=== PATIENT | female | born 2000 | race American Indian/Alaskan Native ===

== ENCOUNTER 2021-07-06 21:24 | Emergency (ER) | payer MEDICAID ==
[2021-07-06 21:44] VITALS: BP 115/63
[2021-07-06] MEDS ORDERED: ACETAMINOPHEN 325 MG TAB PO ONE (21:59)
[2021-07-06 23:17] LABS: Basophils # (Auto) 0.1 K/mm3 (0.0-0.1); Basophils % (Auto) 2.7 % (0.0-1.8); Eosinophils # (Auto) 0.3 K/mm3 (0.0-0.4); Eosinophils % (Auto) 6.4 % (0.0-4.3); Hematocrit 33.7 % (30.3-42.9); Hemoglobin 11.9 gm/dl (10.1-14.3); Lymphocytes # (Auto) 1.4 K/mm3 (1.2-5.4); Lymphocytes % (Auto) 26.9 % (13.4-35.0); Mean Corpuscular HGB Conc 35 % (30-34); Mean Corpuscular Volume 91 fl (79-97); Monocytes # (Auto) 0.3 K/mm3 (0.0-0.8); Monocytes % (Auto) 5.8 % (0.0-7.3); Platelet Count 262 K/mm3 (140-440); Red Blood Count 3.71 M/mm3 (3.65-5.03); Red Cell Distribution Width 12.4 % (13.2-15.2)
[2021-07-06 23:31] LABS: Blood Urea Nitrogen 6 mg/dL (7-17); Calcium 9.4 mg/dL (8.4-10.2); Hemolysis Index 4
[2021-07-06 23:32] LABS: Alanine Aminotransferase < 5 units/L (7-56); BUN/Creatinine Ratio 9
--- NOTE | 2021-07-06 23:36 | Emergency Department Report ---
ED Female HPI - General Chief complaint: Vaginal Bleeding Stated complaint: 14 WKS PREG/VAGINAL BLEEDING Source: patient Mode of arrival: Ambulatory Limitations: No Limitations - History of Present Illness Initial comments: Patient is a A2 20-year-old -[place] female who is approximately 14 weeks gestation and with no past medical history presents to the ED with acute onset persistent heavy vaginal bleeding for the last 2 hours. Patient states that [place] the [place] when she noticed some wetness in her pants and came to the car and while there she noticed that she had heavy vaginal bleeding. Patient also complains of headache and lightheadedness. Patient denies abdominal pain, dysuria, urinary frequency and urgency, vaginal discharge, chest pain or shortness of breath, nausea, vomiting, diarrhea, fever and chills, traumatic injury or heavy lifting and sore throat. MD Complaint: vaginal bleeding, pelvic pain -: Sudden, hour(s) (2) Location: suprapubic, other (Vaginal) Radiation: non-radiating Severity: moderate Severity scale (0 -10): 2 Quality: dull Consistency: constant Improves with: none Worsens with: none Are you Now?: Yes (Approximately 14 weeks gestation) Associated Symptoms: denies other symptoms, vaginal bleeding, headaches. denies: vaginal discharge, abdominal pain, nausea/vomiting, fever/chills, loss of appetite, dysuria, hematuria, rash, seizure, shortness of breath, syncope - Related Data Sexually active: Yes : 3 Para: 0 A: 2 Allergies Allergy/AdvReac Type Severity Reaction Status Date / Time No Known Allergies Allergy Verified 07/06/21 21:43 ED Review of Systems ROS: Stated complaint: 14 WKS PREG/VAGINAL BLEEDING Other details as noted in HPI Constitutional: denies: chills, fever Eyes: denies: eye pain, eye discharge, vision change ENT: denies: ear pain, throat pain Respiratory: denies: cough, shortness of breath, wheezing Cardiovascular: denies: chest pain, palpitations Endocrine: no symptoms reported Gastrointestinal: denies: abdominal pain, nausea, vomiting, diarrhea Genitourinary: abnormal menses (Vaginal bleeding). denies: urgency, dysuria, discharge Musculoskeletal: denies: back pain, joint swelling, arthralgia Skin: denies: rash, lesions Neurological: headache. denies: weakness, paresthesias Psychiatric: denies: anxiety, depression Hematological/Lymphatic: denies: easy bleeding, easy bruising ED Past Medical Hx - Past Medical History Previous Medical History?: No - Surgical History Additional Surgical History: x 2 - Social History Smoking Status: Never Smoker Substance Use Type: None ED Physical Exam - General Limitations: No Limitations General appearance: alert, in no apparent distress - Head Head exam: Present: atraumatic, normocephalic, normal inspection - Eye Eye exam: Present: normal appearance, PERRL, EOMI Pupils: Present: normal accommodation - ENT ENT exam: Present: normal exam, normal orophraynx, mucous membranes moist, TM's normal bilaterally, normal external ear exam - Neck Neck exam: Present: normal inspection, full ROM - Respiratory Respiratory exam: Present: normal lung sounds bilaterally. Absent: respiratory distress, wheezes, rales, stridor, chest wall tenderness, accessory muscle use, decreased breath sounds, prolonged expiratory - Cardiovascular Cardiovascular Exam: Present: regular rate, normal rhythm, normal heart sounds. Absent: systolic murmur, diastolic murmur, rubs, gallop - GI/Abdominal GI/Abdominal exam: Present: soft, normal bowel sounds. Absent: tenderness, guarding, rebound, hyperactive bowel sounds, hypoactive bowel sounds, organomeg shoaib - Bi-manual exam: Present: other (Pelvic exam deferred at this time) - Extremities Exam Extremities exam: Present: normal inspection, full ROM, normal capillary refill - Back Exam Back exam: Present: normal inspection, full ROM. Absent: tenderness, CVA tenderness (R), CVA tenderness (L), muscle spasm, paraspinal tenderness, vertebral tenderness - Neurological Exam Neurological exam: Present: alert, oriented X3, CN II-XII intact, normal gait, reflexes normal - Psychiatric Psychiatric exam: Present: normal affect, normal mood - Skin Skin exam: Present: warm, dry, intact, normal color. Absent: rash ED Course Vital Signs 07/06/21 07/06/21 21:43 23:40 Temperature 99.2 F Pulse Rate 97 H Respiratory 17 Rate Blood Pressure 115/63 O2 Sat by Pulse 100 100 Oximetry ED Medical Decision Making - Lab Data Result diagrams: 07/06/21 22:44 07/06/21 22:44 - Radiology Data Radiology results: report reviewed, image reviewed [facility] [address] [place] [address] Ultrasound Report Signed Patient: JULY MO MR#: [id number] : 2000 Acct:[id number] Age/Sex: 20 / F ADM Date: 07/06/21 Loc: ED Attending Dr: Ordering Physician: BRAULIO NORTON Date of Service: 07/06/21 Procedure(s): US OB >= 14 weeks Fetus Accession Number(s): [id number] cc: BRAULIO NORTON ULTRASOUND OBSTETRIC INDICATION / CLINICAL INFORMATION: Vaginal bleeding - 14 weeks gestation. Clinical Gestational Age (GA): 14.3 weeks TECHNIQUE: Transabdominal. COMPARISON: None available. FINDINGS: There is a single intrauterine . Biparietal Diameter = 2.9 cm = 15 weeks, 1 day(s). Head Circumference = 10.6 cm = 15 weeks, 1 day(s). Abdominal Circumference = 9.3 cm = 15 weeks, 3 day(s). Femur Length = 2.2 cm = 16 weeks, 3 day(s). Average Ultrasound Age (AUA) = 15 weeks, 4 day(s). Heart Rate: 160 beats per minute. Estimated Weight in grams (if calculated): Estimated Weight Growth Percentile (if calculated): Position: cephalic. Cervix: closed. Length in cm (if measured): 1.7 Placenta: maternal left and free of the os. Amniotic Fluid Volume: normal Amniotic Fluid Index (FILIPPO) in cm (if calculated): . Maternal Adnexa: No significant abnormality. IMPRESSION: 1. Single, living intrauterine with estimated sonographic age of 15 weeks, 4 day(s). 2. No significant sonographic abnormality. Signer Name: Jose Schafer MD Signed: 07/07/2021 12:30 AM Workstation Name: [id number] Transcribed By: TL Dictated By: Jose Schafer MD Electronically Authenticated By: Jose Schafer MD Signed Date/Time: 07/07/2129 DD/ TD/TT: Print Cancel - Medical Decision Making This is a A2 20-year-old -[place] female who is approximately 14 weeks gestation and with no past medical history presents to the ED with acute onset persistent heavy vaginal bleeding for the last 2 hours. Patient states that she [place] in the [place] when she noticed some wetness in her pants and came to the car and while there she noticed that she had heavy vaginal bleeding. Patient also complains of headache and lightheadedness. In the ED, patient is alert and oriented x3 and is not in any distress. Patient is hemodynamically stable. All lab test results were reviewed and are all nonactionable except for mild urinary tract infection in urinalysis. Transvaginal ultrasound showed a single, living intrauterine with estimated sonographic age of 15 weeks, 4 day(s) with heart rate of 160 bpm and no other significant sonographic abnormality. Patient however left in the ED prior to being discharged with antibiotics. - Differential Diagnosis Threatened miscarriage; subchorionic bleed; ovarian cyst; UTI; Critical care attestation.: If time is entered above; I have spent that time in minutes in the direct care of this critically ill patient, excluding procedure time. ED Disposition Clinical Impression: Threatened miscarriage, Vaginal bleeding in patient at less than 20 we eks gestation Disposition: LEFT AGAINST MEDICAL ADVICE Is pt being admited?: No Does the pt Need Aspirin: No Condition: Stable Time of Disposition: 00:35 Print Language: EMIRATI
[2021-07-07 00:27] LABS: Bacteria,Urine 1+ /HPF (Negative); Bilirubin,Urine NEG (Negative); Blood,Urine LG (Negative); Color,Urine Yellow (Yellow); Mucus,Urine FEW /HPF; Protein,Urine <15 mg/dL mg/dL (Negative)
--- NOTE | 2021-07-07 00:34 | Ultrasound Report ---
ULTRASOUND OBSTETRIC INDICATION / CLINICAL INFORMATION: Vaginal bleeding - 14 weeks gestation. Clinical Gestational Age (GA): 14.3 weeks TECHNIQUE: Transabdominal. COMPARISON: None available. FINDINGS: There is a single intrauterine . Biparietal Diameter = 2.9 cm = 15 weeks, 1 day(s). Head Circumference = 10.6 cm = 15 weeks, 1 day(s). Abdominal Circumference = 9.3 cm = 15 weeks, 3 day(s). Femur Length = 2.2 cm = 16 weeks, 3 day(s). Average Ultrasound Age (AUA) = 15 weeks, 4 day(s). Heart Rate: 160 beats per minute. Estimated Weight in grams (if calculated): Estimated Weight Growth Percentile (if calculated): Position: cephalic. Cervix: closed. Length in cm (if measured): 1.7 Placenta: maternal left and free of the os. Amniotic Fluid Volume: normal Amniotic Fluid Index (FILIPPO) in cm (if calculated): . Maternal Adnexa: No significant abnormality. IMPRESSION: 1. Single, living intrauterine with estimated sonographic age of 15 weeks, 4 day(s). 2. No significant sonographic abnormality. Signer Name: Jose Schafer MD Signed: 07/07/2021 12:30 AM Workstation Name: [id number]
== END 2021-07-07 00:30 | disposition left against medical advice (07) ==
LOC: ED 21:24
DX: O20.0 Threatened abortion (principal); Z3A.20 20 weeks gestation of pregnancy
CPT/HCPCS: 36415; 76805; 80053; 81001; 84703; 85025; 86900; 86901; 87086; 99284